=== PATIENT | female | born 1950 | race Caucasian/White ===

== ENCOUNTER 2019-01-17 08:11 | Emergency (ER) | payer BC, OTHER ==
[~2019-01-17] VITALS: Ht 167.6 cm; Wt 73.5 kg
[~2019-01-17 08:11] MED LIST: PRISTIQ ER50 MG PO; SEROQUEL200 MG PO; XANAX0.5 MG PO
[2019-01-17] MEDS ORDERED: ONDANSETRON HCL INJ 2MG/ML 2ML 2 MG/ML VIAL IV STA (08:28)
[2019-01-17] MEDS ORDERED: SODIUM CHLORIDE 0.9% 1000ML 1,000 ML IV STA ×2 (08:28)
[2019-01-17] MEDS ORDERED: MORPHINE SULFATE 2 MG/ML SYR 1ML IV STA (08:28)
[2019-01-17 08:39] LABS: BASOPHILS # (AUTO) 0.1 (0.0-0.1); BASOPHILS % 0.6 % (0.0-1.0); EOSINOPHILS # (AUTO) 0.1 (0.0-0.4); EOSINOPHILS % 1.1 % (0.0-6.0); HEMATOCRIT 45.6 % (34.2-44.1); HEMOGLOBIN 15.8 g/dL (12.0-16.0); LYMPHOCYTES # (AUTO) 2.7 (1.0-3.2); LYMPHOCYTES % 30.5 % (18.0-39.1); MEAN CORPUSCULAR HEMOGLOBIN 31.8 pg (28-32); MEAN CORPUSCULAR HGB CONC 34.6 g/dL (31-35); MEAN CORPUSCULAR VOLUME 91.8 fL (81-99); MONOCYTES # (AUTO) 0.7 (0.2-0.8); MONOCYTES % 8.2 % (4.4-11.3); NEUTROPHILS # (AUTO) 5.3 (2.1-6.9); NEUTROPHILS % 59.3 % (38.7-80.0); PLATELET COUNT 253 x10e3/uL (140-360); RED BLOOD COUNT 4.97 x10e6/uL (3.6-5.1); RED CELL DISTRIBUTION WIDTH 12.9 % (11.7-14.4)
[2019-01-17] MEDS ORDERED: FAMOTIDINE 20 MG/2 ML VIAL IV STA (08:39)
[2019-01-17 08:44] LABS: BILIRUBIN,URINE NEGATIVE (NEGATIVE); CLARITY,URINE CLEAR (CLEAR); COLOR,URINE YELLOW (YELLOW); KETONES,URINE NEGATIVE (NEGATIVE); LEUKOCYTE ESTERASE ,URINE NEGATIVE (NEGATIVE); NITRITE,URINE NEGATIVE (NEGATIVE); PROTEIN,URINE DIPSTICK NEGATIVE (NEGATIVE); URINE UROBILINOGEN 0.2 mg/dL (0.2 - 1)
[2019-01-17 08:49] LABS: ALANINE AMINOTRANSFERASE 21 IU/L (0-55); ALBUMIN 4.1 g/dL (3.5-5.0); ALBUMIN/GLOBULIN RATIO 1.4 (0.8-2.0); ALKALINE PHOSPHATASE 93 IU/L (40-150); ANION GAP 14.9 mmol/L (8-16); BLOOD UREA NITROGEN 16 mg/dL (7-26); BUN/CREATININE RATIO 19 (6-25); CALCIUM 9.4 mg/dL (8.4-10.2); CARBON DIOXIDE 23 mmol/L (22-29); CHLORIDE 108 mmol/L (98-107); CREATININE, SERUM 0.84 mg/dL (0.57-1.11); EST GLOMERULAR FILTRATION RATE > 60 ML/MIN (60-); GLUCOSE 104 mg/dL (74-118); POTASSIUM 3.9 mmol/L (3.5-5.1); SODIUM 142 mmol/L (136-145)
--- NOTE | 2019-01-17 09:03 | Diagnostic Imaging Report ---
Chest, 1 view, 01/17/2019. History: Severe abdominal pain for 3 weeks. Comparison: 09/21/2012. Findings: The cardiomediastinal silhouette and pulmonary vasculature are within normal limits for a portable exam. There is no focal consolidation or pleural effusion. There is biapical pleural thickening. There are no acute osseous or soft tissue abnormalities. Impression: No acute cardiopulmonary abnormality. Signed by: Kenneth Turk on 01/17/2019 8:59 AM
[2019-01-17 09:14] LABS: BACTERIA,URINE RARE /HPF; EPITHELIAL CELLS,URINE FEW /LPF; RBC,URINE 0-5 /HPF (0-5); WBC,URINE (MAN) 0-5 /HPF (0-5)
--- NOTE | 2019-01-17 10:51 | Diagnostic Imaging Report ---
CT of the abdomen and pelvis, without contrast, 01/17/2019. History: Generalized abdominal pain. Comparison: None available. Technique: Multidetector CT scanning of the abdomen and pelvis was performed from the level of the lung bases to the inferior pubic rami without intravenous or oral contrast. Coronal and sagittal multiplanar reformations were obtained. RADIATION DOSE: Total DLP: 713 mGy*cm Dose modulation, iterative reconstruction, and/or weight based adjustment of the mA/kV was utilized to reduce the radiation dose to as low as reasonably achievable. Discussion: Examination is limited without contrast. Lung bases: No visualized abnormalities. Abdomen: A 6 mm hypodensity is present in the right lobe of the liver which is too small to characterize. The liver, gallbladder, biliary tree, spleen, pancreas, adrenal glands, and kidneys are otherwise unremarkable. The abdominal aorta is within normal limits. There is no bowel dilatation. The appendix is visualized and is normal. There is no evidence of adenopathy or free fluid. Pelvis: The bladder is distended. The uterus is unremarkable. The ovaries are not visible, presumably atrophic. There is no evidence of free fluid or adenopathy. Calcified phleboliths are present bilaterally. Bones and soft tissues: Degenerative changes are present throughout the lumbar spine without evidence of lytic or sclerotic lesion. IMPRESSION: Distended urinary bladder. Otherwise unremarkable noncontrast exam. No evidence of cholelithiasis, nephrolithiasis, appendicitis, or bowel obstruction. Signed by: Kenneth Turk on 01/17/2019 10:48 AM
[2019-01-17 11:19] VITALS: BP 100/50
[2019-01-17 11:33] LABS: MAGNESIUM 2.3 MG/DL (1.3-2.1)
[2019-01-17 11:39] LABS: CREATINE KINASE MB 2.2 ng/mL (0-5.0)
[2019-01-17] MEDS ORDERED: SODIUM CHLORIDE 0.9% 50ML 0 ML ONE (14:09)
[2019-01-17] MEDS ORDERED: IOPAMIDOL 370 MG/ML 200 ML INFUS..BTL INJ ONE (14:10)
== END 2019-01-17 11:20 | disposition home or self-care (01) ==
LOC: ER 08:11
DX: R10.31 Right lower quadrant pain (principal); R10.84 Generalized abdominal pain; R11.2 Nausea with vomiting, unspecified; R19.7 Diarrhea, unspecified; F31.9 Bipolar disorder, unspecified
CPT/HCPCS: 36415; 71045; 74176; 80053; 81001; 82550; 82553; 83690; 83735; 84484; 85025; 87086; 93005; 99284; J2270; J2405; J7030; Q9967

== ENCOUNTER 2019-01-17 18:03 | Emergency (ER) | payer OTHER ==
[~2019-01-17] VITALS: Ht 167.6 cm; Wt 73.5 kg
--- OUTSIDE RECORDS SUMMARY | 2019-01-17 18:06 | XMS REPORT ---
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 Allergies, Adverse Reactions, Alerts This patient has no known allergies or adverse reactions. Medications This patient has no known medications. Results Test Description Test Time Test Comments Text Results Atomic Results Result Comments CT ABDOMEN/PELVIS WO 2019-01-17 10:44:00 [place] [address] Patient Name: SHASHANK BLANKENSHIP MR #: [id number] : 1950 Age/Sex: 68/F Req #: [id number] Adm Physician: Ordered by: MYLES CHIN MD, MD Report #: [id number] Location: ER Room/Bed: Procedure: [id number] CT/CT ABDOMEN/PELVIS WO Exam Date: 01/17/19 Exam Time: 1015 REPORT STATUS: Signed CT of the abdomen and pelvis, without contrast, 01/17/2019. History: Generalized abdominal pain. Comparison: None available. Technique: Multidetector CT scanning of the abdomen and pelvis was performed from the level of the lung bases to the inferior pubic rami without intravenous or oral contrast. Coronal and sagittal multiplanar reformations were obtained. RADIATION DOSE: Total DLP: 713 mGy*cm Dose modulation, iterative reconstruction, and/or weight based adjustment of the mA/kV was utilized to reduce the radiation dose to as low as reasonably achievable. Discussion: Examination is limited without contrast. Lung bases: No visualized abnormalities. Abdomen: A 6 mm hypodensity is present in the right lobe of the liver which is too small to characterize. The liver, gallbladder, biliary tree, spleen, pancreas, adrenal glands, and kidneys are otherwise unremarkable. The abdominal aorta is within normal limits. There is no bowel dilatation. The appendix is visualized and is normal. There is no evidence of adenopathy or free fluid. Pelvis: The bladder is distended. The uterus is unremarkable. The ovaries are not visible, presumably atrophic. There is no evidence of free fluid or adenopathy. Calcified phleboliths are present bilaterally. Bones and soft tissues: Degenerative changes are present throughout the lumbar spine without evidence of lytic or sclerotic lesion. IMPRESSION: Distended urinary bladder. Otherwise unremarkable noncontrast exam. No evidence of cholelithiasis, nephrolithiasis, appendicitis, or bowel obstruction. Signed by: Rama Turk on 01/17/2019 10:48 AM Dictated By: RAMA TURK MD 1048 Transcribed By: SHELIA on 01/17/19 1048 COPY TO: MYLES CHIN CHEST SINGLE (PORTABLE) 2019-01-17 08:59:00 [place] [address] Patient Name: SHASHANK BLANKENSHIP MR #: [id number] : 1950 Age/Sex: 68/F Req #: [id number] Adm Physician: Ordered by: MYLES CHIN MD, MD Report #: [id number] Location: ER Room/Bed: Procedure: [id number] DX/CHEST SINGLE (PORTABLE) Exam Date: 01/17/19 Exam Time: 0840 REPORT STATUS: Signed Chest, 1 view, 01/17/2019. History: Severe abdominal pain for 3 weeks. Comparison: 09/21/2012. Findings: The cardiomediastinal silhouette and pulmonary vasculature are within normal limits for a portable exam. There is no focal consolidation or pleural effusion. There is biapical pleural thickening. There are no acute osseous or soft tissue abnormalities. Impression: No acute cardiopulmonary abnormality. Signed by: Rama Turk on 01/17/2019 8:59 AM Dictated By: RAMA TURK MD Transcribed By: SHELIA on 01/17/1959 COPY TO: MYLES CHIN
== END 2019-01-17 18:27 | disposition left against medical advice (07) ==
LOC: ER 18:03
DX: R11.0 Nausea (principal)

== ENCOUNTER 2019-04-07 14:29 | Observation (INO) | payer OTHER ==
[~2019-04-07] VITALS: Ht 167.6 cm; Wt 73.5 kg
[2019-04-07] MEDS ORDERED: ASPIRIN 81 MG CHEW TAB PO ONE (14:45)
[2019-04-07 14:58] LABS: BASOPHILS # (AUTO) 0.1 (0.0-0.1); BASOPHILS % 0.9 % (0.0-1.0); EOSINOPHILS # (AUTO) 0.1 (0.0-0.4); EOSINOPHILS % 0.9 % (0.0-6.0); HEMATOCRIT 42.3 % (34.2-44.1); HEMOGLOBIN 14.5 g/dL (12.0-16.0); LYMPHOCYTES # (AUTO) 5.2 (1.0-3.2); LYMPHOCYTES % 50.4 % (18.0-39.1); MEAN CORPUSCULAR HEMOGLOBIN 32.3 pg (28-32); MEAN CORPUSCULAR HGB CONC 34.3 g/dL (31-35); MEAN CORPUSCULAR VOLUME 94.2 fL (81-99); MONOCYTES % 9.6 % (4.4-11.3); NEUTROPHILS # (AUTO) 3.9 (2.1-6.9); PLATELET COUNT 237 x10e3/uL (140-360); RED BLOOD COUNT 4.49 x10e6/uL (3.6-5.1); RED CELL DISTRIBUTION WIDTH 12.7 % (11.7-14.4)
[2019-04-07 15:12] LABS: PARTIAL THROMBOPLASTIN TIME 28.6 seconds (23.8-35.5); PROTHROMBIN TIME 13.7 seconds (11.9-14.5)
[2019-04-07 15:19] LABS: ALBUMIN 4.2 g/dL (3.5-5.0); ALBUMIN/GLOBULIN RATIO 1.6 (0.8-2.0); ANION GAP 17.8 mmol/L (8-16); CALCIUM 9.3 mg/dL (8.4-10.2); CREATININE, SERUM 1.07 mg/dL (0.57-1.11); MAGNESIUM 2.2 MG/DL (1.3-2.1); POTASSIUM 3.8 mmol/L (3.5-5.1)
--- NOTE | 2019-04-07 15:45 | Diagnostic Imaging Report ---
EXAMINATION: CHEST SINGLE (PORTABLE) INDICATION: Shortness of breath COMPARISON: Chest radiograph 01/17/2019 FINDINGS: LINES/TUBES:Neck EKG LUNGS:The lungs are hyperinflated. Mild biapical pleural parenchymal thickening/scarring. No focal consolidation or pulmonary edema. PLEURA:No pleural effusion or pneumothorax. MEDIASTINUM:The cardiomediastinal silhouette appears unchanged in size and shape. BONES/SOFT TISSUES:No acute osseous injury. ABDOMEN:No free air under the diaphragm. IMPRESSION: Hyperinflated lungs. No focal pneumonia or pulmonary edema. Signed by: Ashley Vicente MD on 04/07/2019 3:41 PM
[2019-04-07 16:20] LABS: BILIRUBIN,URINE NEGATIVE (NEGATIVE); CLARITY,URINE SL CLOUDY (CLEAR); COLOR,URINE YELLOW (YELLOW); KETONES,URINE NEGATIVE (NEGATIVE); LEUKOCYTE ESTERASE ,URINE TRACE (NEGATIVE); NITRITE,URINE NEGATIVE (NEGATIVE); PROTEIN,URINE DIPSTICK NEGATIVE (NEGATIVE); URINE UROBILINOGEN 0.2 mg/dL (0.2 - 1)
[2019-04-07 16:34] LABS: BACTERIA,URINE FEW /HPF; EPITHELIAL CELLS,URINE FEW /LPF; RBC,URINE 0-5 /HPF (0-5); WBC,URINE (MAN) 0-5 /HPF (0-5)
[2019-04-07] MEDS ORDERED: ONDANSETRON HCL INJ 2MG/ML 2ML 2 MG/ML VIAL IV PRN (16:45)
[2019-04-07] MEDS: FAMOTIDINE 20 MG/2 ML VIAL IV SCH (17:00)
[2019-04-07 20:36] VITALS: BP 128/68
--- NOTE | 2019-04-07 21:09 | NUR ---
Received bedside report from previous nurse. Patient resting in bed, AAO, no s/s of distress noted at this time. C/o anxiety. Offered self to patient, used grounding techniques. Patient in stable condition, vital signs stable. All safety measures in place. Patient instructed to call for assistance if needed, verbalized understanding. Will continue to monitor.
[2019-04-07 21:10] VITALS: BP 128/68
--- NOTE | 2019-04-07 21:10 | NUR ---
Per lab, Dr. Durand says it is okay to draw next cardiac markers at 2200 instead of 1800 since 1400 results were negative and he ordered them for every 8 hours x4.
[2019-04-07] MEDS ORDERED: TRAZODONE HCL50 MG PO (21:30)
[2019-04-07] MEDS ORDERED: ZOLOFT50 MG PO (21:30)
[2019-04-07] MEDS ORDERED: METFORMIN HCL500 MG PO (21:30)
[2019-04-07 21:35] VITALS: BP 128/68
[2019-04-07 22:49] LABS: CREATINE KINASE 155 IU/L (29-168)
--- NOTE | 2019-04-08 00:17 | NUR ---
Second set of cardiac markers came back negative. Per lab, plan to draw next one at 0600.
[2019-04-08 00:36] VITALS: BP 113/61
[2019-04-08] MEDS: FAMOTIDINE 20 MG/2 ML VIAL IV SCH (05:23)
[2019-04-08 05:41] VITALS: BP 104/54
--- NOTE | 2019-04-08 06:49 | NUR ---
Bedside report given to oncoming nurse. Patient sitting up on couch, in stable condition, no s/s of distress or c/o pain at this time. All safety measures in place.
[2019-04-08 07:00] LABS: BASOPHILS # (AUTO) 0.1 (0.0-0.1); BASOPHILS % 0.9 % (0.0-1.0); EOSINOPHILS # (AUTO) 0.1 (0.0-0.4); HEMATOCRIT 44.1 % (34.2-44.1); HEMOGLOBIN 14.5 g/dL (12.0-16.0); LYMPHOCYTES # (AUTO) 2.9 (1.0-3.2); LYMPHOCYTES % 37.3 % (18.0-39.1); MEAN CORPUSCULAR HGB CONC 32.9 g/dL (31-35); MEAN CORPUSCULAR VOLUME 97.4 fL (81-99); MONOCYTES # (AUTO) 0.8 (0.2-0.8); MONOCYTES % 10.1 % (4.4-11.3); NEUTROPHILS % 50.4 % (38.7-80.0); PLATELET COUNT 253 x10e3/uL (140-360); RED BLOOD COUNT 4.53 x10e6/uL (3.6-5.1); RED CELL DISTRIBUTION WIDTH 12.9 % (11.7-14.4)
[2019-04-08 07:16] LABS: BLOOD UREA NITROGEN 19 mg/dL (7-26); BUN/CREATININE RATIO 24 (6-25); CALCIUM 9.3 mg/dL (8.4-10.2); CARBON DIOXIDE 23 mmol/L (22-29); CHLORIDE 107 mmol/L (98-107); CHOL/HDL RATIO 3.8 (3.0-3.6); CHOLESTEROL 173 MD/DL (0-199); CREATININE, SERUM 0.78 mg/dL (0.57-1.11); EST GLOMERULAR FILTRATION RATE > 60 ML/MIN (60-); GLUCOSE 96 mg/dL (74-118); HDL CHOLESTEROL 45 MG/DL (40-60); LDL CHOLESTEROL 115 MG/DL (60-130); SODIUM 140 mmol/L (136-145); TRIGLYCERIDES 64 MG/DL (0-149)
--- NOTE | 2019-04-08 07:40 | NUR ---
PATIENT IS AWAKE, ALERT, AND STABLE CONDITION WITH NO S/S OF RESPIRATORY DISTRESS. PATIENT DENIES ANY CHEST PAIN. CALL LIGHT IS WITHIN REACH, PATIENT INSTRUCTED TO CALL FOR ASSISTANCE NEEDED.
[2019-04-08 08:07] VITALS: BP 111/70
[2019-04-08] MEDS ORDERED: SERTRALINE HCL 50 MG TAB PO SCH (09:00)
[2019-04-08] MEDS ORDERED: ASPIRIN 81 MG ENTERIC COATED PO SCH (09:00)
[2019-04-08] MEDS ORDERED: METFORMIN HCL 500 MG TAB PO SCH (09:00)
[2019-04-08] MEDS ORDERED: CLONAZEPAM 0.5 MG TAB PO SCH (09:00)
[2019-04-08 10:38] VITALS: BP 111/70
[2019-04-08 11:48] VITALS: BP 112/70
[2019-04-08 16:33] VITALS: BP 103/62
--- NOTE | 2019-04-08 17:11 | Consultation ---
DATE OF CONSULTATION: 04/08/2019 Cardiology Consult Note REASON FOR CONSULT: Chest pain. CHIEF COMPLAINT: Chest pain, anxiety. HISTORY OF PRESENT ILLNESS: The patient is a 68-year-old female, long history of bipolar disorder with anxiety. She had chronically been on Klonopin, however, recently stopped taking it and since then has been having a lot of anxiety at home. Yesterday, she had severe bout of anxiety, but also pressure in her chest and could not breath. She is worried she may be having heart attack, so she went to the OR. She felt better in the ER after a little while, however, was kept overnight to rule out for acute IA. Troponin is negative. She feels much better. Denies any orthopnea or PND. No previous cardiovascular history. Her only risk factor is that she is borderline diabetic and obese. Does not smoke. Does not have hypertension. Does not have family history of CAD. REVIEW OF SYSTEMS: As per HPI, otherwise negative. PAST MEDICAL HISTORY: Bipolar disorder. SOCIAL HISTORY: Does not smoke, drink, or abuse drugs. FAMILY HISTORY: Noncontributory. OUTPATIENT MEDICATIONS: Reviewed. Please see MAR. ALLERGIES: REVIEWED. ALLERGIC TO ATROPINE AND DIPHENOXYLATE. PHYSICAL EXAMINATION: VITAL SIGNS: Temperature 97.9, pulse 71, respiratory rate 16, blood pressure 112/70, and saturating 96% on room air. GENERAL: Well-developed, well-nourished, no acute distress. CARDIOVASCULAR: Regular rate and rhythm. No murmurs, rubs, or gallops. LUNGS: Clear to auscultation bilaterally. ABDOMEN: Soft, nontender, nondistended, and obese. NEURO AND PSYCH: Alert and oriented to person, place, and time. Normal affect. INPATIENT MEDICATIONS: Reviewed. LABORATORY DATA: Reviewed. Troponin negative x3. BNP of 10. IMAGING DATA: Reviewed. Chest x-ray is normal. TELEMETRY DATA: Reviewed. Shows normal sinus rhythm. ASSESSMENT AND PLAN: Chest pain, atypical. PLAN: Chest pain likely due to panic attack and not due to PCS, already ruled out for acute IA. EKG is normal. Okay to be discharged home. Follow up as an outpatient for further risk stratification. Thank you for this consult. We will continue to follow. MD LISS Monet/SUGARL /[id number]
--- NOTE | 2019-04-08 17:18 | NUR ---
PATIENT DISCHARGE HOME- PATIENT OFF THE UNIT AT 1711 ACCOMPANIED BY PCT TO THE FRONT LOBBY. PATIENT IS IN STABLE CONDITION WITH NO S/S OF RESPIRATORY DISTRESS-NO PAIN VOICED. IV REMOVED WITH TIP INTACT. DISCHARGE TEACHING, INSTRUCTIONS, AND MEDICATION GIVEN TO THE PATIENT. ALL PERSONAL ITEMS TAKEN BY THE PATIENT.
[2019-04-08] MEDS ORDERED: TRAZODONE HCL 50 MG TAB PO SCH (21:00)
--- NOTE | 2019-04-10 01:13 | Discharge Summary ---
DISCHARGE DIAGNOSES: 1. Chest pain, rule out myocardial infarction. 2. Anxiety. HISTORY OF PRESENT ILLNESS AND HOSPITAL COURSE: See hospital chart for full details. The patient is a lady, who presented with chest pain secondary to what she believes is severe anxiety, which has really increased over the last couple of weeks. While in the hospital, the patient had no further chest pain. She did rule out for MA by cardiac enzymes and EKG. Telemetry was unremarkable. She was seen by Cardiology, who felt like the patient could be worked up as an outpatient, which the patient was very agreeable to. She was restarted back on her Klonopin, which she had stopped about 3 months ago, which made a significant improvement of her overall anxiety symptoms. She will be discharged home and told to follow up with her primary care physician later this week as well as with Cardiology. Please see hospital chart for full details. MD ALIDA Zambrano/ZAHIDA /[id number]
== END 2019-04-08 17:13 | disposition home or self-care (01) ==
LOC: ER 14:31 → ERHOLD 16:44 → MED/SURG3 18:38
PROVIDERS: ADMIT Family Medicine; ATTEND Family Medicine
DX: R07.89 Other chest pain (principal); F41.9 Anxiety disorder, unspecified; I10 Essential (primary) hypertension; E11.9 Type 2 diabetes mellitus without complications; Z82.49 Family history of ischemic heart disease and other diseases of the circulatory system; Z88.8 Allergy status to other drugs, medicaments and biological substances; F31.9 Bipolar disorder, unspecified; Z79.84 Long term (current) use of oral hypoglycemic drugs
CPT/HCPCS: 36415 ×2; 71045; 80048; 80053; 80061; 81001; 82550 ×2; 82553 ×2; 83735; 83880; 84484 ×2; 85025 ×2; 85379; 85610; 85730; 87086; 93005; 99284; G0378 ×2

== ENCOUNTER 2019-04-16 15:11 | Observation (INO) | payer OTHER ==
[~2019-04-16] VITALS: Ht 167.6 cm; Wt 90.7 kg
[~2019-04-16 15:11] MED LIST changes: +METFORMIN HCL500 MG PO; +TRAZODONE HCL50 MG PO; +ZOLOFT50 MG PO
[2019-04-16] MEDS ORDERED: SODIUM CHLORIDE 0.9% 1000ML 1,000 ML IV STA (15:35)
[2019-04-16 15:54] LABS: BASOPHILS # (AUTO) 0.1 (0.0-0.1); BASOPHILS % 0.6 % (0.0-1.0); EOSINOPHILS # (AUTO) 0.1 (0.0-0.4); HEMATOCRIT 42.7 % (34.2-44.1); HEMOGLOBIN 14.4 g/dL (12.0-16.0); LYMPHOCYTES # (AUTO) 3.5 (1.0-3.2); LYMPHOCYTES % 36.6 % (18.0-39.1); MEAN CORPUSCULAR HEMOGLOBIN 32.2 pg (28-32); MEAN CORPUSCULAR HGB CONC 33.7 g/dL (31-35); MEAN CORPUSCULAR VOLUME 95.5 fL (81-99); MONOCYTES # (AUTO) 0.8 (0.2-0.8); MONOCYTES % 8.7 % (4.4-11.3); NEUTROPHILS # (AUTO) 5.1 (2.1-6.9); PLATELET COUNT 202 x10e3/uL (140-360); RED BLOOD COUNT 4.47 x10e6/uL (3.6-5.1); RED CELL DISTRIBUTION WIDTH 12.8 % (11.7-14.4)
[2019-04-16 16:05] LABS: INR 1.05; PARTIAL THROMBOPLASTIN TIME 28.1 seconds (23.8-35.5); PROTHROMBIN TIME 14.2 seconds (11.9-14.5)
[2019-04-16 16:15] LABS: ALANINE AMINOTRANSFERASE 12 IU/L (0-55); ALBUMIN 3.9 g/dL (3.5-5.0); ALBUMIN/GLOBULIN RATIO 1.6 (0.8-2.0); ALKALINE PHOSPHATASE 81 IU/L (40-150); ANION GAP 15.8 mmol/L (8-16); BLOOD UREA NITROGEN 19 mg/dL (7-26); BUN/CREATININE RATIO 23 (6-25); CALCIUM 9.2 mg/dL (8.4-10.2); CARBON DIOXIDE 23 mmol/L (22-29); CHLORIDE 103 mmol/L (98-107); CREATINE KINASE 96 IU/L (29-168); CREATININE, SERUM 0.84 mg/dL (0.57-1.11); EST GLOMERULAR FILTRATION RATE > 60 ML/MIN (60-); GLUCOSE 101 mg/dL (74-118); MAGNESIUM 2.2 MG/DL (1.3-2.1); POTASSIUM 3.8 mmol/L (3.5-5.1); SODIUM 138 mmol/L (136-145)
[2019-04-16 16:16] LABS: BILIRUBIN,URINE NEGATIVE (NEGATIVE); CLARITY,URINE HAZY (CLEAR); COLOR,URINE YELLOW (YELLOW); KETONES,URINE NEGATIVE (NEGATIVE); LEUKOCYTE ESTERASE ,URINE 2+ (NEGATIVE); NITRITE,URINE NEGATIVE (NEGATIVE); PROTEIN,URINE DIPSTICK NEGATIVE (NEGATIVE); URINE UROBILINOGEN 0.2 mg/dL (0.2 - 1)
[2019-04-16 16:19] LABS: AMPHETAMINES SCREEN,URINE NEGATIVE (NEGATIVE); BENZODIAZEPINES SCREEN,URINE NEGATIVE (NEGATIVE); PHENCYCLIDINE SCREEN,URINE NEGATIVE (NEGATIVE)
[2019-04-16 16:22] LABS: ACETAMINOPHEN < 3 ug/mL (10-30); BACTERIA,URINE FEW /HPF; EPITHELIAL CELLS,URINE FEW /LPF; RBC,URINE 0-5 /HPF (0-5)
--- NOTE | 2019-04-16 16:23 | Diagnostic Imaging Report ---
EXAMINATION: CHEST SINGLE (PORTABLE) COMPARISON: Chest x-ray 04/07/2019 INDICATION: ^syncope ^[id number] ^1550 DISCUSSION: Frontal view of the chest obtained at 1553 hours. HEART AND MEDIASTINUM: The cardiomediastinal silhouette is unremarkable. LINES: None. LUNGS: The lungs are diffusely hyperinflated suggestive of small airways disease. No pneumonia or pulmonary edema. PLEURA: No pleural effusion or pneumothorax. BONES AND SOFT TISSUES: No focal osseous lesion. The soft tissues are normal. IMPRESSION: Diffuse pulmonary hyperinflation. No acute cardiopulmonary process. Signed by: Dr. Richie Natarajan MD on 04/16/2019 4:20 PM
[2019-04-16] MEDS ORDERED: ONDANSETRON HCL INJ 2MG/ML 2ML 2 MG/ML VIAL IV PRN (16:45)
[2019-04-16] MEDS ORDERED: FAMOTIDINE 20 MG/2 ML VIAL IV SCH (16:45)
[2019-04-16] MEDS ORDERED: DEXTROSE 50% SYRINGE 50 ML IV PRN (16:45)
--- NOTE | 2019-04-16 16:47 | Diagnostic Imaging Report ---
Examination: CT head without contrast Clinical Indication: Fall with head injury. Technique: Transaxial noncontrast images from the skull base through the vertex were obtained. Sagittal and coronal reformatted images were done. Dose modulation, iterative reconstruction, and/or weight based adjustment of the mA/kV was utilized to reduce the radiation dose to as low as reasonably achievable. Comparison: None. Findings: Scalp: No abnormalities. Bones: Intact. No fractures. No blastic or lytic lesions. Brain sulci: Appropriate for patient's age. Ventricles: Normal in size and configuration. No hydrocephalus. . Extra-axial space: No abnormalities. Parenchyma: There are subtle areas of low-attenuation within subcortical and periventricular white matter, nonspecific, but could represent microvascular ischemic disease. No masses, hemorrhage, or acute or chronic cortical based vascular insults. Suprasellar region: No abnormalities. Craniocervical junction: The foramen magnum is patent. No Chiari one malformation. Impression: 1. No acute intracranial finding. 2. Mild chronic microvascular ischemic change. Signed by: Dr. Sheri Caputo M.D. on 04/16/2019 4:44 PM
--- NOTE | 2019-04-16 16:55 | Diagnostic Imaging Report ---
Examination: CT CERVICAL SPINE WO CONTRAST HISTORY:Neck pain and injury after fall COMPARISON:None. TECHNIQUE: Multidetector helical axial images were obtained without contrast from the foramen magnum to T1. Coronal and sagittal reformatted images were done. Bone and soft tissue windows were evaluated. Dose modulation, iterative reconstruction, and/or weight based adjustment of the mA/kV was utilized to reduce the radiation dose to as low as reasonably achievable. FINDINGS: Alignment:Normal alignment and lordosis. Vertebrae: Normal height and density. No acute fracture, infection or neoplasm Caliber of spinal canal: Developmentally normal. Posterior fossa and craniocervical junction: Foramen magnum patent. No Chiari 1 malformation. Soft tissues: No abnormality. Degenerative changes: Diffuse disc bulge osteophyte complexes fro C3-C4 through C6-C7 with mild canal stenosis at C5-C6 and C6-C7. Visualized lung apices: No abnormalities. IMPRESSION: 1. No acute abnormalities. 2. Mild degenerative changes, as above. Signed by: Dr. Sheri Caputo M.D. on 04/16/2019 4:52 PM
--- NOTE | 2019-04-16 18:01 | NUR ---
BLOOD SUGAR 79, KITCHEN TO BRING PATIENT MEAL TRAY
--- NOTE | 2019-04-16 20:04 | NUR ---
PT ARRIVED BY STRETCHER TO ROOM 105. PT IS AAOX3, RR EVEN AND NON-LABORED, ON ROOM AIR. PT AMBULATED FROM STRETCHER TO HOSPITAL BED WITH STAND BY ASSIST. PT REPORTS FEELINGS OF VERTIGO. ORIENTED PT TO HOSPITAL ROOM, CALL LIGHT, PHONE, BED CONTROLS AND LIGHTS. LEFT PT LAYING SEMI FOWLERS IN BED, BED IN LOW LOCKED POSITION, SIDE RAILS UPX2, CALL LIGHT AND PHONE WITHIN REACH.
[2019-04-16] MEDS: INSULIN LISPRO 100 UNIT/1 ML 3ML VIAL SQ SCH (20:15)
[2019-04-16 21:15] VITALS: BP 101/64
[2019-04-16 21:42] LABS: CREATINE KINASE MB 0.8 ng/mL (0-5.0)
--- NOTE | 2019-04-16 22:36 | NUR ---
SPOKE WITH MD JIMENEZ, COVERING FOR MD BEVERLY, CONCERNING NEW CONSULTATION. NO NEW ORDERS.
[2019-04-16] MEDS ORDERED: KLONOPIN1 MG PO (23:18)
[2019-04-16] MEDS ORDERED: ASPIR 8181 MG PO (23:19)
[2019-04-16] MEDS ORDERED: GABAPENTIN400 MG PO (23:19)
[2019-04-17] VITALS: BP 88/56
[2019-04-17 04:00] VITALS: BP 101/61
[2019-04-17 04:15] LABS: BASOPHILS # (AUTO) 0.1 (0.0-0.1); EOSINOPHILS # (AUTO) 0.1 (0.0-0.4); EOSINOPHILS % 1.9 % (0.0-6.0); HEMATOCRIT 41.1 % (34.2-44.1); HEMOGLOBIN 13.8 g/dL (12.0-16.0); LYMPHOCYTES # (AUTO) 2.7 (1.0-3.2); LYMPHOCYTES % 39.9 % (18.0-39.1); MEAN CORPUSCULAR HEMOGLOBIN 32.5 pg (28-32); MEAN CORPUSCULAR HGB CONC 33.6 g/dL (31-35); MEAN CORPUSCULAR VOLUME 96.7 fL (81-99); MONOCYTES # (AUTO) 0.7 (0.2-0.8); NEUTROPHILS # (AUTO) 3.2 (2.1-6.9); NEUTROPHILS % 47.1 % (38.7-80.0); PLATELET COUNT 183 x10e3/uL (140-360); RED BLOOD COUNT 4.25 x10e6/uL (3.6-5.1); RED CELL DISTRIBUTION WIDTH 12.9 % (11.7-14.4)
[2019-04-17 04:29] LABS: CREATINE KINASE 83 IU/L (29-168)
[2019-04-17 04:31] LABS: ALANINE AMINOTRANSFERASE 10 IU/L (0-55); ALBUMIN 3.3 g/dL (3.5-5.0); ALBUMIN/GLOBULIN RATIO 1.6 (0.8-2.0); ALKALINE PHOSPHATASE 81 IU/L (40-150); BLOOD UREA NITROGEN 13 mg/dL (7-26); BUN/CREATININE RATIO 18 (6-25); CALCIUM 8.5 mg/dL (8.4-10.2); CARBON DIOXIDE 23 mmol/L (22-29); CHOL/HDL RATIO 3.6 (3.0-3.6); CHOLESTEROL 130 MD/DL (0-199); CREATININE, SERUM 0.74 mg/dL (0.57-1.11); EST GLOMERULAR FILTRATION RATE > 60 ML/MIN (60-); GLUCOSE 98 mg/dL (74-118); HDL CHOLESTEROL 36 MG/DL (40-60); LDL CHOLESTEROL 82 MG/DL (60-130); TRIGLYCERIDES 58 MG/DL (0-149)
[2019-04-17 04:52] LABS: ANION GAP 13.9 mmol/L (8-16); CHLORIDE 110 mmol/L (98-107); POTASSIUM 3.9 mmol/L (3.5-5.1); SODIUM 143 mmol/L (136-145)
[2019-04-17] MEDS: INSULIN LISPRO 100 UNIT/1 ML 3ML VIAL SQ SCH ×3 (07:30→16:30)
[2019-04-17 07:53] VITALS: BP 106/59
[2019-04-17] MEDS ORDERED: METFORMIN HCL 500 MG TAB PO SCH (08:00)
[2019-04-17 08:04] VITALS: BP 106/59
[2019-04-17] MEDS: CLONAZEPAM 1 MG TAB PO SCH ×2 (08:14→16:35)
[2019-04-17] MEDS: GABAPENTIN 400 MG CAP PO SCH ×2 (08:14→16:35)
[2019-04-17] MEDS ORDERED: ASPIRIN 81 MG ENTERIC COATED PO SCH (09:00)
[2019-04-17] MEDS ORDERED: ASPIRIN 81 MG CHEW TAB PO SCH (09:00)
[2019-04-17] MEDS ORDERED: FAMOTIDINE 20 MG/2 ML VIAL IV SCH (09:00)
[2019-04-17] MEDS ORDERED: SERTRALINE HCL 50 MG TAB PO SCH (09:00)
[2019-04-17 12:06] VITALS: BP 107/59
--- NOTE | 2019-04-17 12:15 | History and Physical ---
The patient is a 68-year-old female comes in with syncopal episode. HISTORY OF PRESENTING ILLNESS: This is Ms. Cordero, who had recently come prior to with an admission for chest pain. Workup was negative. The patient was sent home. However, on Wednesday evening, the patient had taken one dose of trazodone, which helps with sleeping and then 10 minutes later the patient was found to have a syncopal episode. Time loss was not known. The patient lost complete consciousness. No chest pain was noted prior to the episode. No shortness of breath or no symptoms prior to admission to the syncopal episode. The patient woke up and was able to ambulate. No urinary incontinence, fecal incontinence, and no cognitive deficits were noted. The patient came into emergency room and was admitted for syncopal episode. PAST MEDICAL HISTORY: History of diabetes mellitus, recently diagnosed, the patient with history of bipolar disease and history of osteoarthritis. PAST SURGICAL HISTORY: History of right knee surgery, otherwise negative. The patient's medical problems include bipolar disease. FAMILY HISTORY: History of cancer in mother, history of myocardial infarction in father and history of alcohol abuse in mother. SOCIAL HISTORY: Lives at home. is at home. No smoking. No EtOH. No IV drug abuse either. REVIEW OF SYSTEMS: Negative for chest pain. No shortness of breath. No nausea. No vomiting. No diarrhea. No constipation. No rectal bleeding. No hematochezia. No hematemesis. No diplopia. No blurry vision. No paresthesia. No hyperesthesias. PHYSICAL EXAMINATION: VITAL SIGNS: Temperature is 97.6, pulse of 70, respirations of 20, blood pressure is 101/61, and pulse oximetry of 97%. HEENT: Normocephalic and atraumatic. Pupils are reactive to light and accommodation. No nystagmus present. CVS: S1 and S2 normal. Regular rate and rhythm. ABDOMEN: Nontender and nondistended. EXTREMITIES: No clubbing, no cyanosis, and/or no edema. NEUROLOGICAL: Cranial nerves are normal. The patient has good motor strength in upper and lower extremities. Reflexes are 2+ in all major reflexes. The patient's gait is not assessed at this time. LABORATORY VALUES: White count is 9.54, hemoglobin of 14.4, and hematocrit of 42.7. Chemistry shows sodium of 143, potassium of 3.9, BUN of 13, and creatinine 0.74. Troponins have been trended to be negative. Coags are normal. Urine leukocytes 2+, wbc 6 to 10. IMAGING STUDIES: Cervical spine CT shows no acute abnormalities, mild degenerative changes. Brain CT shows no acute intracranial finding, chronic microvascular changes. ASSESSMENT: 1. Syncopal episode, etiology unknown, possibly secondary to medication effect. 2. Secondary to orthostatic hypotension. PLAN: 1. MRI of the brain, MRA of the neck. The patient also will undergo orthostatic blood pressures, compression stockings, and SCDs will be placed. 2. Bipolar disease. We will continue on home medications. 3. Possible medication effect. At this point of time, trazodone will be discontinued. Further recommendation per clinical course. We will continue to monitor the patient. We will possibly discharge the patient tonight after MRI/MRAs are done. MD AMRIK Wall/MODL /[id number]
[2019-04-17] MEDS ORDERED: CLONAZEPAM 0.5 MG TAB PO ONE (14:45)
--- NOTE | 2019-04-17 15:49 | Diagnostic Imaging Report ---
MRA NECK WO, MRA HEAD WO HISTORY: Syncope COMPARISON: Head and cervical spine CT 04/16/2019 TECHNIQUE: Axial 2D cervical, and axial 3D intracranial [id number] MRA images were obtained without contrast. Maximum intensity projection images were created. If present, any cervical carotid stenosis will be measured as a percentage relative to the [place] artery distal to the stenosis. FINDINGS: CERVICAL MRA: Please note that the origins of the vertebral arteries are poorly imaged. Right Carotid: No gross flow abnormalities. Left Carotid: No gross flow abnormalities. Right vertebral artery: No gross flow abnormalities. Left vertebral artery: No gross flow abnormalities. INTRACRANIAL MRA: Carotid arteries: No gross flow abnormalities in the intracranial internal carotid arteries. Normal A1 and M1 segments. Vertebrobasilar Circulation: Right vertebral artery: No gross flow abnormalities. Left vertebral artery: No gross flow abnormalities. Basilar artery: No gross flow abnormalities. Posterior cerebral arteries: No gross flow abnormalities. Normal Variants: ACom: Questionable patency. PComs: Not visualized. Vertebral arteries: Left dominant. IMPRESSION: No cervical or intracranial MRA abnormalities. Signed by: Dr. Genaro Sena M.D. on 04/17/2019 3:46 PM
--- NOTE | 2019-04-17 15:49 | Diagnostic Imaging Report ---
MRA NECK WO, MRA HEAD WO HISTORY: Syncope COMPARISON: Head and cervical spine CT 04/16/2019 TECHNIQUE: Axial 2D cervical, and axial 3D intracranial [id number] MRA images were obtained without contrast. Maximum intensity projection images were created. If present, any cervical carotid stenosis will be measured as a percentage relative to the [place] artery distal to the stenosis. FINDINGS: CERVICAL MRA: Please note that the origins of the vertebral arteries are poorly imaged. Right Carotid: No gross flow abnormalities. Left Carotid: No gross flow abnormalities. Right vertebral artery: No gross flow abnormalities. Left vertebral artery: No gross flow abnormalities. INTRACRANIAL MRA: Carotid arteries: No gross flow abnormalities in the intracranial internal carotid arteries. Normal A1 and M1 segments. Vertebrobasilar Circulation: Right vertebral artery: No gross flow abnormalities. Left vertebral artery: No gross flow abnormalities. Basilar artery: No gross flow abnormalities. Posterior cerebral arteries: No gross flow abnormalities. Normal Variants: ACom: Questionable patency. PComs: Not visualized. Vertebral arteries: Left dominant. IMPRESSION: No cervical or intracranial MRA abnormalities. Signed by: Dr. Genaro Sena M.D. on 04/17/2019 3:46 PM
[2019-04-17 16:10] VITALS: BP 120/60
--- NOTE | 2019-04-17 18:07 | NUR ---
patient refusing Echo and wants to do it outpatient. Called Dr Lizama and ordered discharge as patient has follow up scheduled with Dr Lizama in am. SL removed and patient getting dressed now.
--- NOTE | 2019-04-17 22:48 | Consultation ---
DATE OF CONSULTATION: 04/17/2019 Cardiology Consultation. REQUESTING PHYSICIAN: Kalin Lizama MD REASON FOR CONSULTATION: Syncope. HISTORY OF PRESENT ILLNESS: This is a 68-year-old woman with history of metabolic syndrome recently diagnosed diabetes mellitus and bipolar disorder who presents with complaints of syncope. The patient reports that she had gotten up to check on something in the kitchen, when she had sudden loss of consciousness. She denied any chest pain, palpitations or visual changes prior to this episode. She denies any tongue biting, but did report she had urinary incontinence. She denies any edema, orthopnea, or PND. She therefore presented to the ER for further evaluation. REVIEW OF SYSTEMS: Negative except as per HPI. PAST MEDICAL HISTORY: 1. Recently diagnosed diabetes mellitus. 2. Metabolic syndrome. 3. Bipolar disorder. PAST SURGICAL HISTORY: 1. Knee surgery. 2. Tonsillectomy. 3. Tubal. ALLERGIES: PLEASE SEE EMR. MEDICATIONS: Please see medication list. SOCIAL HISTORY: Denies tobacco, alcohol or illicit drugs. FAMILY HISTORY: Pertinent for myocardial infarction in the father. PHYSICAL EXAMINATION: VITAL SIGNS: Temperature 97.9 degrees, pulse 73, respiratory rate 16, blood pressure 107/59, and oxygen saturation 98% on room air. GENERAL: Well-developed, well-nourished woman, in no acute distress. HEENT: Normocephalic, atraumatic. Pupils equal. No scleral icterus. NECK: Supple. No thyromegaly or cervical lymphadenopathy. No carotid bruits. LUNGS: Clear to auscultation bilaterally. No wheeze or crackles. CARDIOVASCULAR: Normal rate, regular rhythm. No murmur. Normal S1, S2. ABDOMEN: Soft and nontender. EXTREMITIES: No edema. NEUROLOGIC: Nonfocal exam. LABORATORY DATA: WBC was 6.87, hemoglobin 13.8, hematocrit 41.1, platelets 183, sodium 143, potassium 3.9, chloride 110, CO2 of 23, BUN 13, and creatinine 0.74 troponin less than 0.001. EKG, normal sinus rhythm, normal ECG. Chest x-ray, diffuse pulmonary hyperinflation. No acute cardiopulmonary process. IMPRESSION: 1. Syncope. 2. Recently diagnosed diabetes mellitus. 3. Bipolar disorder. RECOMMENDATIONS: Obtain echocardiogram and carotid Dopplers. Check orthostatic vitals. Monitor the patient on telemetry for arrhythmia. Further recommendations pending test results. Thank you for this consult. We will continue to follow. MD SARAH Putnam/ZAHIDA /[id number]
== END 2019-04-17 18:18 | disposition home or self-care (01) ==
LOC: ER 15:11 → ERHOLD 16:41 → MED/SURG 20:06
PROVIDERS: ADMIT Family Medicine; ATTEND Family Medicine
DX: I95.1 Orthostatic hypotension (principal); R55 Syncope and collapse; F31.9 Bipolar disorder, unspecified; E11.9 Type 2 diabetes mellitus without complications; M19.90 Unspecified osteoarthritis, unspecified site
CPT/HCPCS: 36415 ×2; 70450; 70544; 70547; 71045; 72125; 80053 ×2; 80061; 80307; 80320; 80329; 81001; 82550 ×2; 82553 ×2; 82948 ×2; 83735; 84484 ×2; 85025 ×2; 85610; 85730; 87086; 93005; 99284; G0378 ×2; J7030

== ENCOUNTER 2020-07-07 04:37 | Observation (INO) | payer MEDICARE ==
[~2020-07-07] VITALS: Ht 167.6 cm; Wt 59.9 kg
[~2020-07-07 04:37] MED LIST changes: +ASPIR 8181 MG PO; +GABAPENTIN400 MG PO; +KLONOPIN1 MG PO
[2020-07-07 05:08] LABS: BASOPHILS # (AUTO) 0.1 (0.0-0.1); BASOPHILS % 1.4 % (0.0-1.0); EOSINOPHILS # (AUTO) 0.2 (0.0-0.4); EOSINOPHILS % 1.8 % (0.0-6.0); HEMATOCRIT 45.1 % (34.2-44.1); HEMOGLOBIN 15.2 g/dL (12.0-16.0); LYMPHOCYTES # (AUTO) 4.8 (1.0-3.2); LYMPHOCYTES % 55.3 % (18.0-39.1); MEAN CORPUSCULAR HEMOGLOBIN 32.5 pg (28-32); MEAN CORPUSCULAR HGB CONC 33.7 g/dL (31-35); MEAN CORPUSCULAR VOLUME 96.4 fL (81-99); MONOCYTES # (AUTO) 0.8 (0.2-0.8); MONOCYTES % 8.9 % (4.4-11.3); NEUTROPHILS # (AUTO) 2.8 (2.1-6.9); NEUTROPHILS % 32.4 % (38.7-80.0); PLATELET COUNT 173 x10e3/uL (140-360); RED BLOOD COUNT 4.68 x10e6/uL (3.6-5.1); RED CELL DISTRIBUTION WIDTH 12.7 % (11.7-14.4)
[2020-07-07 05:11] LABS: INR 0.96; PROTHROMBIN TIME 13.3 seconds (11.9-14.5)
[2020-07-07 05:21] LABS: ALANINE AMINOTRANSFERASE 19 IU/L (0-55); ALBUMIN 4.4 g/dL (3.5-5.0); ALBUMIN/GLOBULIN RATIO 1.5 (0.8-2.0); ALKALINE PHOSPHATASE 68 IU/L (40-150); ANION GAP 19.4 mmol/L (8-16); BLOOD UREA NITROGEN 20 mg/dL (7-26); BUN/CREATININE RATIO 23 (6-25); CALCIUM 9.1 mg/dL (8.4-10.2); CARBON DIOXIDE 22 mmol/L (22-29); CHLORIDE 103 mmol/L (98-107); CREATINE KINASE 110 IU/L (29-168); CREATININE, SERUM 0.87 mg/dL (0.57-1.11); EST GLOMERULAR FILTRATION RATE > 60 ML/MIN (60-); GLUCOSE 90 mg/dL (74-118); POTASSIUM 4.4 mmol/L (3.5-5.1); SODIUM 140 mmol/L (136-145)
[2020-07-07] MEDS ORDERED: SODIUM CHLORIDE 0.9% 1000ML 1,000 ML IV STA (05:36)
[2020-07-07] MEDS ORDERED: SODIUM CHLORIDE 0.9% 1000ML 1,000 ML ONE (05:46)
[2020-07-07] MEDS ORDERED: NITROGLYCERIN 0.4 MG SUBL SL PRN (07:00)
[2020-07-07] MEDS ORDERED: ONDANSETRON HCL INJ 2MG/ML 2ML 2 MG/ML VIAL IV PRN (07:00)
[2020-07-07] MEDS ORDERED: MORPHINE SULFATE INJ 2 MG/ML SYR IV PRN (07:00)
[2020-07-07] MEDS ORDERED: IOPAMIDOL 370 MG/ML 200 ML INFUS..BTL INJ ONE (07:30)
[2020-07-07] MEDS ORDERED: SODIUM CHLORIDE 0.9% 50ML 50 ML ONE (07:30)
[2020-07-07 08:54] LABS: BAND NEUTROPHILS % (MANUAL) 4 %; LYMPHOCYTES % (MANUAL) 59 % (19-48); MONOCYTES % (MANUAL) 7 % (3.4-9.0); NEUTROPHILS % (MANUAL) 30 % (40-74)
[2020-07-07] MEDS ORDERED: ASPIRIN 81 MG ENTERIC COATED PO SCH (09:00)
[2020-07-07 10:42] LABS: CREATINE KINASE 88 IU/L (29-168)
[2020-07-07 11:45] VITALS: BP 105/78
== END 2020-07-07 11:49 | disposition home or self-care (01) ==
LOC: ER 04:50 → ERHOLD 06:47
PROVIDERS: ADMIT Family Medicine; ATTEND Family Medicine
DX: R07.9 Chest pain, unspecified (principal); E11.9 Type 2 diabetes mellitus without complications; Z20.822 Contact with and (suspected) exposure to COVID-19
CPT/HCPCS: 36415; 70450; 71045; 71275; 80053; 82550; 82553; 83735; 83880; 84484; 85025; 85610; 85730; 93005; 99284; G0378; J7030; Q9967; U0002

== ENCOUNTER → 2020-07-24 | Outpatient (CLI) | payer MEDICARE ==
[2020-07-24 11:43] LABS: HEMOGLOBIN 13.7 g/dL (12.0-16.0)
[2020-07-24 12:19] LABS: BLOOD UREA NITROGEN 28 mg/dL (7-26); BUN/CREATININE RATIO 34 (6-25); CREATININE, SERUM 0.82 mg/dL (0.57-1.11); EST GLOMERULAR FILTRATION RATE > 60 ML/MIN (60-)
== END ==
LOC: DX 11:21
PROVIDERS: ATTEND Family Medicine
DX: Z45.2 Encounter for adjustment and management of vascular access device (principal)
CPT/HCPCS: 36415; 36569; 71045; 82565; 84520; 85014; 85049

== ENCOUNTER → 2020-07-25 | Outpatient (CLI) | payer MEDICARE ==
[~2020-07-25] MED LIST changes: +IOPAMIDOL 370 MG/ML 200 ML INFUS..BTL INJ ONE; +SODIUM CHLORIDE 0.9% 50ML 50 ML ONE
== END ==
LOC: CT 07:18
PROVIDERS: ATTEND Family Medicine
DX: R06.02 Shortness of breath (principal)
CPT/HCPCS: 71260; Q9967

== ENCOUNTER → 2021-03-26 | Outpatient (CLI) | payer MEDICARE ==
[~2021-03-26] MED LIST changes: -IOPAMIDOL 370 MG/ML 200 ML INFUS..BTL INJ ONE; -SODIUM CHLORIDE 0.9% 50ML 50 ML ONE
== END ==
LOC: MRI 09:53
PROVIDERS: ATTEND Family Medicine
DX: G57.92 Unspecified mononeuropathy of left lower limb (principal); R15.9 Full incontinence of feces; R26.81 Unsteadiness on feet
CPT/HCPCS: 70551

== ENCOUNTER → 2022-09-25 | Day surgery (SDC) | payer MEDICARE ==
[2022-09-22 10:50] LABS: BASOPHILS # (AUTO) 0.1 (0.0-0.1); BASOPHILS % 1.3 % (0.0-1.0); EOSINOPHILS # (AUTO) 0.1 (0.0-0.4); EOSINOPHILS % 1.8 % (0.0-6.0); HEMOGLOBIN 15.1 g/dL (12.0-16.0); LYMPHOCYTES # (AUTO) 2.4 (1.0-3.2); LYMPHOCYTES % 35.6 % (18.0-39.1); MEAN CORPUSCULAR HEMOGLOBIN 33.1 pg (28-32); MEAN CORPUSCULAR HGB CONC 32.8 g/dL (31-35); MEAN CORPUSCULAR VOLUME 100.9 fL (81-99); MONOCYTES # (AUTO) 0.7 (0.2-0.8); MONOCYTES % 9.5 % (4.4-11.3); NEUTROPHILS # (AUTO) 3.5 (2.1-6.9); NEUTROPHILS % 51.7 % (38.7-80.0); PLATELET COUNT 201 x10e3/uL (140-360); RED BLOOD COUNT 4.56 x10e6/uL (3.6-5.1); RED CELL DISTRIBUTION WIDTH 11.6 % (11.7-14.4)
[~2022-09-25] MED LIST changes: +DICYCLOMINE HCL20 MG PO; +FAMOTIDINE20 MG PO; +LACTATED RINGER'S 1,000 ML ONE; +LIDOCAINE HCL 2% LOCAL INJ 5 ML SDV VIAL INJ ONE; +MIDAZOLAM HCL 2 MG/2 ML VIAL ONE; +PROPOFOL IV EMULSION 10 MG/ML 20 ML VIAL ONE; +SIMETHICONE 40 MG/0.6 ML BTL ONE; +SUPER CALCIUM1 EACH PO; +TOPIRAMATE25 MG PO; +[UNRECOGNIZED DRUG - OTHER] PO
[2022-09-25 10:13] VITALS: TEMP 98.7
[2022-09-25 10:45] VITALS: BP 134/85; PULSE 70; RESP 16; O2SAT 98
== END | disposition home or self-care (01) ==
LOC: OR 07:00
PROVIDERS: ATTEND Internal Medicine Gastroenterology
DX: Z12.11 Encounter for screening for malignant neoplasm of colon (principal); D12.3 Benign neoplasm of transverse colon; K29.50 Unspecified chronic gastritis without bleeding; K44.9 Diaphragmatic hernia without obstruction or gangrene; K26.9 Duodenal ulcer, unspecified as acute or chronic, without hemorrhage or perforation; K29.80 Duodenitis without bleeding; R13.10 Dysphagia, unspecified; K57.30 Diverticulosis of large intestine without perforation or abscess without bleeding; K64.8 Other hemorrhoids; K59.00 Constipation, unspecified; K83.8 Other specified diseases of biliary tract; K76.9 Liver disease, unspecified; F31.9 Bipolar disorder, unspecified; Z01.810 Encounter for preprocedural cardiovascular examination; Z01.812 Encounter for preprocedural laboratory examination; Z79.899 Other long term (current) drug therapy; Z87.898 Personal history of other specified conditions
CPT/HCPCS: 36415; 43239; 45378; 45384; 82941; 85025; 88304; 88305; 88312; 88342; 93005; J2001; J2250

== ENCOUNTER 2024-01-10 17:27 | Emergency (ER) | payer MEDICARE ==
[~2024-01-10 17:27] MED LIST changes: -LACTATED RINGER'S 1,000 ML ONE; -LIDOCAINE HCL 2% LOCAL INJ 5 ML SDV VIAL INJ ONE; -MIDAZOLAM HCL 2 MG/2 ML VIAL ONE; -PROPOFOL IV EMULSION 10 MG/ML 20 ML VIAL ONE; -SIMETHICONE 40 MG/0.6 ML BTL ONE
== END 2024-01-10 18:09 | disposition left against medical advice (07) ==
LOC: ER 17:43
DX: R42 Dizziness and giddiness (principal)

== ENCOUNTER 2024-03-31 17:57 | Emergency (ER) | payer MEDICARE ==
[~2024-03-31] VITALS: Ht 167.6 cm; Wt 82.7 kg
[2024-03-31 18:10] VITALS: PULSE 86; RESP 16; TEMP 97.1
[2024-03-31] MEDS ORDERED: METFORMIN HCL500 M1 PO (18:23)
[2024-03-31] MEDS ORDERED: GABAPENTIN300 MG PO (18:23)
[2024-03-31] MEDS: KETOROLAC TROMETHAMINE 30 MG/ML VIAL IM STA (18:39)
[2024-03-31] MEDS ORDERED: ULTRAM 50MG50 MG PO (19:52)
[2024-03-31 20:57] VITALS: BP 131/74; PULSE 74; RESP 16; TEMP 98.3; O2SAT 99
== END 2024-03-31 20:13 | disposition home or self-care (01) ==
LOC: FSED 18:01
DX: M25.551 Pain in right hip (principal); Y93.01 Activity, walking, marching and hiking; G62.9 Polyneuropathy, unspecified; F41.9 Anxiety disorder, unspecified; F31.9 Bipolar disorder, unspecified
CPT/HCPCS: 73700; 96372; 99283; J1885

== ENCOUNTER 2024-05-25 09:21 | Emergency (ER) | payer MEDICARE ==
[~2024-05-25] VITALS: Ht 167.6 cm; Wt 82.6 kg
[~2024-05-25 09:21] MED LIST changes: +GABAPENTIN300 MG PO; +METFORMIN HCL500 M1 PO; +ULTRAM 50MG50 MG PO
[2024-05-25] MEDS ORDERED: MELOXICAM7.5 MG PO (09:46)
[2024-05-25] MEDS ORDERED: ACETAMINOPHEN-1 EAC4 (09:46)
[2024-05-25] MEDS ORDERED: CYCLOBENZAPRINE10 MG PO (09:46)
[2024-05-25] MEDS: KETOROLAC TROMETHAMINE 30 MG/ML VIAL IV STA (11:29)
[2024-05-25] MEDS: Morphine 4mg INJECTION 4 MG/ML INJ IV ONE ×2 (11:29→12:17)
[2024-05-25] MEDS ORDERED: HYDROCODON-ACE1 EA11 PO (11:54)
[2024-05-25] MEDS ORDERED: PREDNISONE20 MG PO (11:56)
[2024-05-25 12:25] VITALS: PULSE 91; RESP 16; TEMP 98.2; O2SAT 98
== END 2024-05-25 12:25 | disposition home or self-care (01) ==
LOC: FSED 09:26
DX: M54.50 Low back pain, unspecified (principal); G89.29 Other chronic pain; G62.9 Polyneuropathy, unspecified; F41.9 Anxiety disorder, unspecified; F32.A Depression, unspecified
CPT/HCPCS: 96374; 96375; 96376; 99283; J1885; J2270

== ENCOUNTER 2024-07-06 12:14 | Observation (INO) | payer MEDICARE ==
[2024-07-06] VITALS (7 sets, daily range): BP systolic 117–143; BP diastolic 60–70; PULSE 74–80; RESP 16–20; TEMP 97.6–98.2; O2SAT 99–100
[~2024-07-06] VITALS: Ht 167.6 cm; Wt 77.1 kg
[~2024-07-06 12:14] MED LIST changes: +ACETAMINOPHEN-1 EAC4 PO; +CYCLOBENZAPRINE10 MG PO; +HYDROCODON-ACE1 EA11 PO; +MELOXICAM7.5 MG PO; +PREDNISONE20 MG PO
[2024-07-06 13:01] LABS: BASOPHILS # (AUTO) 0.1 (0.0-0.1); BASOPHILS % 1.1 % (0.0-1.0); EOSINOPHILS # (AUTO) 0.1 (0.0-0.4); EOSINOPHILS % 1.9 % (0.0-6.0); HEMATOCRIT 42.6 % (34.2-44.1); HEMOGLOBIN 14.2 g/dL (12.0-16.0); LYMPHOCYTES # (AUTO) 3.2 (1.0-3.2); LYMPHOCYTES % 43.8 % (18.0-39.1); MEAN CORPUSCULAR HEMOGLOBIN 31.8 pg (28-32); MEAN CORPUSCULAR HGB CONC 33.3 g/dL (31-35); MEAN CORPUSCULAR VOLUME 95.3 fL (81-99); MONOCYTES # (AUTO) 0.7 (0.2-0.8); MONOCYTES % 9.3 % (4.4-11.3); NEUTROPHILS # (AUTO) 3.2 (2.1-6.9); NEUTROPHILS % 43.6 % (38.7-80.0); PLATELET COUNT 263 x10e3/uL (140-360); RED BLOOD COUNT 4.47 x10e6/uL (3.6-5.1); WHITE BLOOD COUNT 7.22 x10e3/uL (4.8-10.8)
[2024-07-06 13:09] LABS: INR 1.02
[2024-07-06 13:10] LABS: PARTIAL THROMBOPLASTIN TIME 27.2 seconds (23.8-35.5)
[2024-07-06] MEDS: ONDANSETRON HCL INJ 2MG/ML 2ML 2 MG/ML VIAL IV STA (13:14)
[2024-07-06] MEDS: SODIUM CHLORIDE 0.9% 1000ML 1,000 ML IV STA (13:14)
[2024-07-06] MEDS: HYDROMORPHONE 1MG/1ML INJ IV STA (13:16)
[2024-07-06 13:20] LABS: ALBUMIN 3.5 g/dL (3.5-5.0); ALBUMIN/GLOBULIN RATIO 1.3 (0.8-2.0); ANION GAP 12.9 mmol/L (8-16); BILIRUBIN,TOTAL 0.4 mg/dL (0.2-1.2); CALCIUM 8.6 mg/dL (8.4-10.2); CREATININE, SERUM 0.76 mg/dL (0.57-1.11); POTASSIUM 3.9 mmol/L (3.5-5.1); TOTAL PROTEIN 6.3 g/dL (6.5-8.1)
[2024-07-06] MEDS: SODIUM CHLORIDE 0.9% 1000ML 1,000 ML IV SCH (14:35)
[2024-07-06] MEDS ORDERED: ARTHRITIS PAIN650 MG PO (17:32)
[2024-07-06] MEDS ORDERED: NEURONTIN300 MG PO (17:36)
[2024-07-06] MEDS: ONDANSETRON HCL INJ 2MG/ML 2ML 2 MG/ML VIAL IV PRN (18:40)
[2024-07-06] MEDS: HYDROMORPHONE 1MG/1ML INJ IV PRN (22:10)
[2024-07-07] VITALS (7 sets, daily range): BP systolic 110–136; BP diastolic 68–73; PULSE 66–105; RESP 16–20; TEMP 98–98.7; O2SAT 97–100
[2024-07-07] MEDS: LORAZEPAM INJ 2 MG/ML VIAL IV ONE (10:44)
[2024-07-07] MEDS: PROMETHAZINE 12.5MG/ NACL 0.9% 12.5 MG/50 ML BAG IV PRN (20:05)
[2024-07-08 00:42] VITALS: BP 128/77; PULSE 87; RESP 16; TEMP 98.3; O2SAT 97
[2024-07-08 08:41] VITALS: BP 123/87; PULSE 91; RESP 18; TEMP 98.2; O2SAT 100
[2024-07-08 08:45] VITALS: BP 123/87; PULSE 91; RESP 18; TEMP 98.2; O2SAT 100
== END 2024-07-08 10:57 | disposition home or self-care (01) ==
LOC: ER 12:34 → ERHOLD 13:57 → MED/SURG3 15:32
PROVIDERS: ADMIT Family Medicine; ATTEND Family Medicine
DX: M80.0AXA Age-related osteoporosis with current pathological fracture, other site, initial encounter for fracture (principal); M80.88XA Other osteoporosis with current pathological fracture, vertebra(e), initial encounter for fracture; Z87.310 Personal history of (healed) osteoporosis fracture; M19.90 Unspecified osteoarthritis, unspecified site; F31.9 Bipolar disorder, unspecified; F41.9 Anxiety disorder, unspecified
CPT/HCPCS: 36415; 72148; 72192; 73700; 73721; 80053; 85025; 85610; 85730; 86850; 86900; 97110; 97116; 97161; 97530; 99284; G0378 ×3; J1171 ×3; J2060; J2405 ×2; J2550 ×2; J7030 ×3